=== PATIENT | female | born 1945 | race Caucasian/White ===

== ENCOUNTER 2021-03-14 12:57 | Inpatient (IN) | payer OTHER, MEDICAID, SELFPAY ==
[~2021-03-14] VITALS: Ht 157.5 cm; Wt 96.2 kg
[2021-03-14 13:00] VITALS: BP_SYST 148
--- NOTE | 2021-03-14 13:00 | NUR ---
Pt to bed 8 for evaluation. Report given to DAVON Eudardo who will assume care.
--- NOTE | 2021-03-14 13:12 | NUR ---
Pt. bib BLS from home with c/o weakness and N/V, pt. states had diarrhea for 2 days then began with N/V for last 3 days, pt. states throwing up large amounts of dark liquid and now has some abd. pain, pt. states abd. pain feels like muscle ache from throwing up.
[2021-03-14] MEDS ORDERED: BENA10TA73 PO (13:13)
[2021-03-14] MEDS ORDERED: DULO60CA41 PO (13:13)
[2021-03-14] MEDS ORDERED: BUPR100T13 PO (13:13)
[2021-03-14] MEDS ORDERED: HYDR25TA4 PO (13:13)
--- NOTE | 2021-03-14 13:25 | NUR ---
ER at bedside examining patient.
[2021-03-14] MEDS ORDERED: NACL 0.9% 1,000 ML IV ONE (13:30)
--- NOTE | 2021-03-14 13:41 | NUR ---
Pt. refusing IV and blood draw have explained POC in detail and answered all questions, pt. continue to refuse, notified Dr. Irizarry she is in discussing POC with pt. and explaining need of IV and blood draw
[2021-03-14] MEDS ORDERED: ONDANSETRON HCL 4 MG/2 ML VIAL IVP ONE (13:45)
--- NOTE | 2021-03-14 13:55 | NUR ---
Spoke with pts. son Bart per pt. request, she will not allow any treatment until she sees him
--- NOTE | 2021-03-14 14:34 | NUR ---
# 20 gauge angiocath placed to RAC. Use of asceptic technique. Opsite placed over site. Blood return noted. Blood for lab drawn from site. Flushed with 10 cc of normal saline. No evidence of infiltration noted. Patient tolerated well.
--- NOTE | 2021-03-14 14:35 | NUR ---
Patient transported to radiology via gurney for CT scan, accompanied by staff.
--- NOTE | 2021-03-14 14:35 | NUR ---
Blood collected and sent to lab.
--- NOTE | 2021-03-14 14:55 | NUR ---
NS bolus infusing, pt. still refuses Zofran, emesis X 1 clear dark brown 25 ml., son at bedside
[2021-03-14 15:00] LABS: BASOPHILS % (AUTO) 0.2 % (0.0-2.0); HEMATOCRIT 47.8 % (36-48); LYMPHOCYTES # (AUTO) 0.5 K/uL (1.0-5.5); LYMPHOCYTES % (AUTO) 4.6 % (20.5-51.5); MEAN CORPUSCULAR HEMOGLOBIN 31 pg (27-31); MEAN CORPUSCULAR HGB CONC 33 % (32-36); MEAN CORPUSCULAR VOLUME 93 fL (79.0-98.0); MONOCYTES # (AUTO) 0.5 K/uL (0.0-1.0); MONOCYTES % (AUTO) 4.6 % (1.7-9.3); NEUTROPHILS # (AUTO) 9.4 K/uL (1.8-7.7); NEUTROPHILS % (AUTO) 90.6 % (40.0-70.0); PLATELET COUNT (AUTO) 167 K/uL (130-430); RED BLOOD CELL COUNT(AUTO) 5.14 MIL/uL (4.2-6.2); RED CELL DISTRIBUTION WIDTH 14.2 % (9.0-15.0); WHITE BLOOD COUNT (AUTO) 10.4 K/uL (4.8-10.8)
[2021-03-14 15:03] LABS: ANION GAP 9 (5-15); CALCIUM 10.6 mg/dL (8.4-11.0); CHLORIDE 99 mmol/L (98-107); CREATININE 2.11 mg/dL (0.55-1.30); GLUCOSE 148 mg/dL (70-99); POTASSIUM 3.7 mmol/L (3.5-5.1); SODIUM SERUM 143 mmol/L (136-145); UREA NITROGEN, BLOOD 31 mg/dL (8-21)
[2021-03-14 15:09] LABS: ALANINE AMINOTRANSFERASE 16 U/L (12-78); ALBUMIN 4.1 g/dL (3.4-4.8); ASPARTATE AMINOTRANSFERASE 14 U/L (10-37); LIPASE 61 U/L (73-393); TOTAL BILIRUBIN 1.1 mg/dL (0.0-1.0)
--- NOTE | 2021-03-14 15:51 | NUR ---
pts. daughter Erika [phone] pts. daughter Renetta [phone]
--- NOTE | 2021-03-14 17:16 | NUR ---
pt. had 100ml of brown emesis, Dr. Bragg at bedside to review POC with pt., pt. refused NG tube that Dr. Bragg discussed with her to be placed
--- NOTE | 2021-03-14 18:01 | NUR ---
assisted pt to bedside commode per her request, she was unable to void
--- NOTE | 2021-03-14 18:05 | NUR ---
Dr. Bragg at bedside reviewed POC with pt. and pts. daughter
[2021-03-14] MEDS ORDERED: ALBUTEROL SULFATE 0.083% 2.5 MG/3 ML VIAL.NEB INH PRN (18:15)
[2021-03-14] MEDS ORDERED: ACETAMINOPHEN 325 MG TABLET PO PRN (18:15)
--- NOTE | 2021-03-14 18:20 | NUR ---
med. rec. done by Rachel Celis, pt. belongings and notification done
--- NOTE | 2021-03-14 19:20 | NUR ---
Pt report received. Pt AAOx3, even and non-labored respirations, VSS. No active N/V at this time. Polly, pt's daughter at bedside, provides phone number ([phone]). No needs verbalized at this time.
[2021-03-14] MEDS: ONDANSETRON HCL 4 MG/2 ML VIAL IVP PRN (19:36)
--- NOTE | 2021-03-14 19:50 | NUR ---
Pt O2 70% RA. No respiratory distress noted. MD notified. Order for ABG received, RT notified. Pt placed on O2 at 3 LPM/NC, SPO2 increases to 97%.
--- NOTE | 2021-03-14 20:00 | NUR ---
RT at bedside, MD present to reassess. Order for ABG cancelled per MD. SPO2 continues at 97% on O2 at 3 LPM/NC. NAD.
--- NOTE | 2021-03-14 20:12 | NUR ---
Dr. Bragg on phone with Dr. Cuenca to notify of pt desaturation and need for supplemental O2. No new orders received.
[2021-03-14] MEDS: NACL 0.9% 1,000 ML IV SCH (21:04)
[2021-03-14] MEDS: PANTOPRAZOLE SODIUM 40 MG/VIAL (PROTONIX) IVP SCH (21:04)
--- NOTE | 2021-03-14 21:35 | NUR ---
RECEIVED PT FROM ER ER EVENT STAFF TRANSFERRED PT. PT STABLE. LEFT AC 20G IV INTACT AND PATENT. PT INTERMITTENTLY HAVING THIN BROWN EMESIS. PT STATES, "I DON'T BELONG HERE. I WANT TO GO HOME". PT EDUCATED ON DIAGNOSIS AND PLAN OF CARE. PT VERBALIZED UNDERSTANDING. PT CONTINUES TO REFUSE NG TUBE INSERTION. SHE STATES, "NO, I DEFINITELY DON'T WANT THAT". PT EDUCATED ON IMPORTANCE OF HAVING NG TUBE INSERTED. PT CONTINUES TO REFUSE. NC ON 3L. PT TOLERATING WELL. SKIN INTACT. BED IN LOWEST AND LOCKED POSITION. SAFETY PRECAUTIONS IN PLACE. WILL CONTINUE TO MONITOR.
--- NOTE | 2021-03-14 21:35 | NUR ---
Patient will be admitted to care of Dr. Sharp. Admitted to M/S unit. Will go to room 100B. Belongings list completed. Complete and up to date summary report printed. SBAR report to be given at bedside with opportunity for questions.
--- NOTE | 2021-03-14 21:38 | NUR ---
CONSULTATION PAGED/CALLED Reason for Consultation: STOMACH OBSTRUCTION Person Who was Notified: LISBET Consulting Physician: DENISE MCCLELLAND TROUNG IS PUTTY GLAZER Rad Tech Specialty: Ordering Physician: MONTSERRAT
[2021-03-14 21:41] VITALS: BP_SYST 149
--- NOTE | 2021-03-14 21:44 | NUR ---
CALL RECEIVED FROM DR. HUBBARD. WAS PREVIOUSLY CALLED FOR A CONSULT. CURRENT SPECIAL LIBRARY LIBRARIAN DR FOR GI. PT REPORT GIVEN. STATES HE WILL SEE PATIENT IN MORNING.
[2021-03-14 21:57] VITALS: BP_SYST 150
--- NOTE | 2021-03-14 22:58 | NUR ---
OUTPUT PT HAS APPROXIMATELY 50ML OF THIN BROWN EMESIS. NEW EMESIS BAG GIVEN.
[2021-03-15 00:11] VITALS: BP_SYST 140
[2021-03-15] MEDS: NACL 0.9% 1,000 ML IV SCH ×2 (03:38→10:42)
--- NOTE | 2021-03-15 06:40 | NUR ---
CLOSING NOTE PT SITTING IN BED AWAKE WITH EYES OPEN. RIGHT AC IV INTACT. RUNNING IVF. PT IS HAVING MORNING EMESIS, BROWN IN COLOR, THIN IN CONSISTENCY. ABOUT 5ML IN VOLUME PER OUTPUT. PT DENIES PAIN OR SOB. BED IN LOWEST AND LOCKED POSITION. CALL LIGHT WITHIN REACH. BEDSIDE COMMODE IN PLACE. EDUCATION GIVEN TO PREVENT FALLS. ALL NEEDS MET. SAFETY PRECAUTIONS IN PLACE. WILL ENDORSE TO DAY RN.
[2021-03-15 06:50] LABS: BASOPHILS % (AUTO) 0.2 % (0.0-2.0); HEMATOCRIT 44.3 % (36-48); HEMOGLOBIN 14.7 g/dL (12.0-16.0); LYMPHOCYTES # (AUTO) 0.6 K/uL (1.0-5.5); LYMPHOCYTES % (AUTO) 4.2 % (20.5-51.5); MEAN CORPUSCULAR HEMOGLOBIN 31 pg (27-31); MEAN CORPUSCULAR HGB CONC 33 % (32-36); MEAN CORPUSCULAR VOLUME 93 fL (79.0-98.0); MONOCYTES # (AUTO) 1.1 K/uL (0.0-1.0); MONOCYTES % (AUTO) 8.5 % (1.7-9.3); NEUTROPHILS # (AUTO) 11.7 K/uL (1.8-7.7); NEUTROPHILS % (AUTO) 87.1 % (40.0-70.0); PLATELET COUNT (AUTO) 156 K/uL (130-430); RED BLOOD CELL COUNT(AUTO) 4.75 MIL/uL (4.2-6.2); RED CELL DISTRIBUTION WIDTH 14.3 % (9.0-15.0); WHITE BLOOD COUNT (AUTO) 13.5 K/uL (4.8-10.8)
[2021-03-15 07:33] LABS: ANION GAP 11 (5-15); CALCIUM 9.4 mg/dL (8.4-11.0); CHLORIDE 101 mmol/L (98-107); CREATININE 2.16 mg/dL (0.55-1.30); GLUCOSE 138 mg/dL (70-99); POTASSIUM 3.2 mmol/L (3.5-5.1); SODIUM SERUM 145 mmol/L (136-145); UREA NITROGEN, BLOOD 37 mg/dL (8-21)
[2021-03-15 07:45] LABS: ALANINE AMINOTRANSFERASE 8 U/L (12-78); ALBUMIN 3.6 g/dL (3.4-4.8); ASPARTATE AMINOTRANSFERASE 18 U/L (10-37); TOTAL BILIRUBIN 0.9 mg/dL (0.0-1.0)
[2021-03-15] MEDS ORDERED: ACETAMINOPHEN 325 MG TABLET PO PRN (08:15)
[2021-03-15] MEDS: PANTOPRAZOLE SODIUM 40 MG/VIAL (PROTONIX) IVP SCH ×2 (10:40→20:16)
--- NOTE | 2021-03-15 10:57 | NUR ---
HIGH ALERT NOTE: Called Dr. Weber back at [phone] identified within the medical roster to verify physician authenticity.
--- NOTE | 2021-03-15 10:58 | NUR ---
Nutrition Update Steve Scale 17 noted. Pt admitted for nausea and vomiting. Diet: NPO BMI: 38.9 kg/m2 RD to follow per nutrition care standards.
[2021-03-15] MEDS: KCL 20 mEq in NS 1000 mL 1,000 ML IV SCH ×2 (11:00→23:52)
--- NOTE | 2021-03-15 11:00 | NUR ---
NEEDS PICCLINE/MIDDLINE/SEEN BY DR DSOUZA/ NEEDS NGT PATIENT WITH A POOR VENOUS ACCESS, NEW IV RE-INSERTED G24, WITH ORDERED TO PUT MIDDLINE. DAUGHTER WAS HERE AT BEDSIDE MADE AWARE THAT PATIENT NEEDS PICCLINE DUE TO POOR VENOUS ACCESS. SEEN BY DR. DSOUZA, SPOKE TO DAUGHTER AND MADE AWARE THAT PATIENT NEEDS A FOREGUT SURGEON TO REPAIR THE PATIENT'S HERNIA, PER DR DSOUZA THEY CAN ONLY DO A TEMPORARY PROCEDURE, EVENTUALLY THE PATIENT'S NEEDS ANOTHER SURGERY TO FIX THE HERNIA AND REQUIRE HIGHER LEVEL OF CARE. DAUGHTER AND SON OF PATIENT AGREED FOR PICCLINE. DR CAMARGO COVERING FOR DR WHITTINGTON CAME AND TALK TO THE FAMILY. PATIENT TO BE TRANSFER TO HIGHER LEVEL OF CARE TO REFER FOR FOREGUT SURGEON PER FAMILY;S REQUEST. SON ANATOLIY DOESN'T WANT THE PATIENT TO UNDERGO 2X SURGERY, THEY PREFER THE SURGERY TO BE DONE BY FOREGUT SURGEON. GUNJAN HARPER CREDIT CARD ASSOCIATE MADE AWARE OF THE DISCHARGE PLAN TO BE TRANSFER TO HIGHER LEVEL OF CARE. FAMILY REFUSED TO PUT NGT TO PATIENT FOR NOW BECAUSE PATIENT IS CONFUSED AND WILL PULL NGT AND WILL NEED A RESTRAINT TO KEEP THE NGT. PATIENT STILL WITH EPISODES OF ON AND OFF VOMITING WITH ZOFRAN ORDERED.
[2021-03-15] MEDS: ONDANSETRON HCL 4 MG/2 ML VIAL IVP PRN ×2 (11:15→18:32)
[2021-03-15] MEDS ORDERED: POTASSIUM CHLORIDE 40 MEQ, LIDOCAINE JECT 2% PF 100 MG 50 MG in NS 250 ML IV ONE (11:30)
[2021-03-15 11:41] VITALS: BP_SYST 150
[2021-03-15] MEDS ORDERED: LORazepam 2 MG/ML VIAL IVP PRN (11:45)
--- NOTE | 2021-03-15 13:11 | NUR ---
CONSULTATION PAGED/CALLED Reason for Consultation: [] MICHAELA Person Who was Notified: [] DR BERG Consulting Physician: [] DR BERG Radiosonde Specialist Specialty: [] MANAGER SECURITY AND SAFETY Ordering Physician: [] DR CAMARGO/DR WHITTINGTON
[2021-03-15 14:01] LABS: PROTHROMBIN TIME 10.2 SECS (9.5-12.5)
[2021-03-15 15:12] VITALS: BP_SYST 136
--- NOTE | 2021-03-15 17:00 | NUR ---
DR DSOUZA MADE AWARE THAT FAMILY REFUSED NGT FOR PATENT MADE AWARE THAT PATIENT'S FAMILY REFUSED THE NGT FOR NOW.
--- NOTE | 2021-03-15 19:30 | NUR ---
OPENING NOTE RECEIVED REPORT FROM DAY RN. PT LAYING IN BED WITH RESPIRATIONS EVEN AND UNLABORED ON 3L O2 VIA NC. NO SIGNS OF DISTRESS NOTED. PT REQUESTING "ICE CHIPS". CARA PICC INTACT. DRESSING CLEAN AND DRY. RIGHT AC IV INTACT. CALL LIGHT WITHIN REACH. SAFETY PRECAUTIONS IN PLACE. BED IN LOWEST AND LOCKED POSITION. WILL CONTINUE TO MONITOR.
[2021-03-15 20:00] VITALS: BP_SYST 150
[2021-03-15] MEDS ORDERED: KCL IV ONE (21:24)
[2021-03-15] MEDS ORDERED: NS IV ONE (21:24)
[2021-03-16] VITALS: BP_SYST 134
--- NOTE | 2021-03-16 00:26 | NUR ---
CONTINUOUS EMESIS PT CONTINUES TO HAVE THIN BROWN EMESIS. SMALL AMOUNT OF SPUTUM. EMESIS BAG WITH PATIENT TO MEASURE OUTPUT.
--- NOTE | 2021-03-16 03:52 | NUR ---
ROUNDS PT STATES SHE IS THIRSTY AND WOULD LIKE TO LEAVE. PT TRIED TO GET OUT OF BED WITH IV LINE ATTACHED TO PUMP. BED ALARM SOUNDED. EDUCATED PT ON PLAN OF CARE AND DR ORDERS OF "NPO". PT STATES HER LIPS ARE DRY. LUBRICANT GIVEN TO PT. PT REFUSED AND STATES, "NO I WANT SOMETHING TO DRINK". PT BACK INTO BED, RESTING. SMALL AMOUNT OF ICE CHIPS GIVEN TO PT TO SOOTH "THIRST". PT EDUCATED ON NOT DRINKING OR SWALLOWING THE ICE. PT VERBALIZED UNDERSTANDING.
[2021-03-16 04:00] VITALS: BP_SYST 120
--- NOTE | 2021-03-16 04:11 | NUR ---
VS TAKEN D/T CONSISTENT EMESIS THROUGHOUT THE NIGHT, VS TAKEN AND WNL. BP 120/81. HR 80. R-20 T-97.0 O2-95%
[2021-03-16] MEDS: KCL 20 mEq in NS 1000 mL 1,000 ML IV SCH ×2 (05:37→17:46)
[2021-03-16 07:00] LABS: BASOPHILS % (AUTO) 0.2 % (0.0-2.0); HEMATOCRIT 44.4 % (36-48); HEMOGLOBIN 14.5 g/dL (12.0-16.0); LYMPHOCYTES # (AUTO) 0.6 K/uL (1.0-5.5); LYMPHOCYTES % (AUTO) 5.6 % (20.5-51.5); MEAN CORPUSCULAR HEMOGLOBIN 31 pg (27-31); MEAN CORPUSCULAR HGB CONC 33 % (32-36); MEAN CORPUSCULAR VOLUME 94 fL (79.0-98.0); MONOCYTES % (AUTO) 8.8 % (1.7-9.3); NEUTROPHILS # (AUTO) 9.2 K/uL (1.8-7.7); NEUTROPHILS % (AUTO) 85.4 % (40.0-70.0); PLATELET COUNT (AUTO) 133 K/uL (130-430); RED BLOOD CELL COUNT(AUTO) 4.71 MIL/uL (4.2-6.2); RED CELL DISTRIBUTION WIDTH 14.2 % (9.0-15.0); WHITE BLOOD COUNT (AUTO) 10.8 K/uL (4.8-10.8)
[2021-03-16 07:50] LABS: ANION GAP 5 (5-15); CALCIUM 8.8 mg/dL (8.4-11.0); CHLORIDE 107 mmol/L (98-107); CREATININE 2.14 mg/dL (0.55-1.30); GLUCOSE 103 mg/dL (70-99); PHOSPHORUS 4.5 mg/dL (2.7-4.5); POTASSIUM 3.8 mmol/L (3.5-5.1); SODIUM SERUM 143 mmol/L (136-145); UREA NITROGEN, BLOOD 43 mg/dL (8-21)
[2021-03-16 08:00] VITALS: BP_SYST 122
--- NOTE | 2021-03-16 08:00 | NUR ---
initial notes Awake, vomited 50ml, cleaned and repositioned for comfort, wants to go home and still refuses NGT placement, keep npo, IVF infusing well. call light within reach. will monitor.
[2021-03-16] MEDS: PANTOPRAZOLE SODIUM 40 MG/VIAL (PROTONIX) IVP SCH ×2 (08:55→20:21)
--- NOTE | 2021-03-16 11:14 | NUR ---
RE: THE TRANSFER TO A HIGHER LEVEL OF CARE SPOKE TO [employer]/CM GUNJAN LEOVAL, WHO IS WORKING ON THE TRANSFER SAID THAT DR TEODORO DSOUZA MUST SPEAK TO THE THORACIC MD, DR ANGELO OF [facility], BEFORE A TRANSFER CAN HAPPEN. I WAS ASKED BY CM MS HOLLINS TO CALL HER ONCE DR DSOUZA DOES HIS ROUND TODAY SO SHE CAN TALK TO MD.
[2021-03-16 11:23] VITALS: BP_SYST 148
--- NOTE | 2021-03-16 11:30 | NUR ---
Notes Patient resting, seen by Dr. Weber and spoke to family at bedside.
[2021-03-16 15:29] VITALS: BP_SYST 139
--- NOTE | 2021-03-16 16:21 | NUR ---
ORDERED BY [employer]/CM MS GUNJAN HARPER TO FAX ALL INFO TO [facility], TRANSFER UNIT.
--- NOTE | 2021-03-16 18:24 | NUR ---
closing notes Awake, family at bedside, still vomiting through out shift, denies any pain, no distress. will endorse.
--- NOTE | 2021-03-16 19:21 | NUR ---
opening note received report from day rn. pt sitting in bed with respirations even and unlabored on 3L o2 via NC. no signs of distress noted. pt requesting ice chips. Pt educated on plan of care for the night. IVF running. no signs of infiltration noted. bed in lowest and locked position. call light within reach. safety precautions in place. will continue to monitor.
[2021-03-16 20:31] VITALS: BP_SYST 151
[2021-03-17 00:26] VITALS: BP_SYST 139
--- NOTE | 2021-03-17 03:11 | NUR ---
ROUNDS PATIENT LAYING IN BED WITH EYES CLOSED. RESPIRATIONS EVEN AND UNLABORED ON 3L O2 VIA NC. NO SIGNS OF DISTRESS NOTED. BED IN LOWEST AND LOCKED POSITION. CALL LIGHT WITHIN REACH. SAFETY PRECAUTIONS IN PLACE. WILL CONTINUE TO MONITOR.
[2021-03-17] MEDS: KCL 20 mEq in NS 1000 mL 1,000 ML IV SCH ×2 (03:13→15:46)
--- NOTE | 2021-03-17 06:40 | NUR ---
CLOSING NOTE PATIENT LAYING AWAKE IN BED WITH RESPIRATIONS EVEN AND UNLABORED ON 3L O2 VIA NC. NO SIGNS OF DISTRESS NOTED. SAFETY PRECAUTIONS IN PLACE. CARA PICC INTACT RUNNING IVF. ALL NEEDS MET THROUGHOUT THE NIGHT. WILL ENDORSE TO DAY RN.
--- NOTE | 2021-03-17 07:35 | NUR ---
MORNING ROUNDS: PATIENT LYING ON THE BED,AWAKE,ALERT AND ORIENTED X3.O2 3L/NC,GOOD SATURATION.IV FLUIDS RUNNING AT RIGHT UPPER ARM PICC LINE,CLEAN AND DRY. CALL LIGHT WITH IN REACH. BED LOCKED AT LOWEST POSITION. CONTINUE TO MONITOR.
[2021-03-17 07:53] LABS: ALANINE AMINOTRANSFERASE 11 U/L (12-78); ANION GAP 9 (5-15); ASPARTATE AMINOTRANSFERASE 13 U/L (10-37); CALCIUM 9.6 mg/dL (8.4-11.0); CHLORIDE 112 mmol/L (98-107); CREATININE 1.78 mg/dL (0.55-1.30); GLUCOSE 93 mg/dL (70-99); POTASSIUM 4.4 mmol/L (3.5-5.1); SODIUM SERUM 150 mmol/L (136-145); TOTAL BILIRUBIN 0.7 mg/dL (0.0-1.0); UREA NITROGEN, BLOOD 48 mg/dL (8-21)
[2021-03-17 08:20] VITALS: BP_SYST 160
[2021-03-17] MEDS: PANTOPRAZOLE SODIUM 40 MG/VIAL (PROTONIX) IVP SCH ×2 (09:38→22:22)
[2021-03-17 11:25] VITALS: BP_SYST 156
[2021-03-17 11:56] LABS: BASOPHILS % (AUTO) 0.2 % (0.0-2.0); EOSINOPHILS % (AUTO) 0.2 % (0.0-4.0); HEMATOCRIT 45.5 % (36-48); HEMOGLOBIN 14.6 g/dL (12.0-16.0); LYMPHOCYTES # (AUTO) 0.6 K/uL (1.0-5.5); LYMPHOCYTES % (AUTO) 7.7 % (20.5-51.5); MEAN CORPUSCULAR HEMOGLOBIN 31 pg (27-31); MEAN CORPUSCULAR HGB CONC 32 % (32-36); MEAN CORPUSCULAR VOLUME 96 fL (79.0-98.0); MONOCYTES # (AUTO) 0.7 K/uL (0.0-1.0); NEUTROPHILS # (AUTO) 5.9 K/uL (1.8-7.7); NEUTROPHILS % (AUTO) 81.9 % (40.0-70.0); PLATELET COUNT (AUTO) 121 K/uL (130-430); RED BLOOD CELL COUNT(AUTO) 4.76 MIL/uL (4.2-6.2); RED CELL DISTRIBUTION WIDTH 14.6 % (9.0-15.0); WHITE BLOOD COUNT (AUTO) 7.2 K/uL (4.8-10.8)
[2021-03-17 12:40] LABS: ERYTHROCYTE SEDIMENTATION RATE 13 MM/HR (0-20)
[2021-03-17 12:58] LABS: C-REACTIVE PROTEIN QUANT 13.5 mg/dL (0-0.5)
[2021-03-17] MEDS ORDERED: SINCALIDE 5 MCG VIAL IV ONE (14:00)
[2021-03-17 15:31] VITALS: BP_SYST 143
--- NOTE | 2021-03-17 17:47 | NUR ---
Radiology : Spoke with Sergo from radiology to repeat Upper gi tomorrow morning per radiologist.Keep patient nothing by mouth after 12 midnight.
--- NOTE | 2021-03-17 18:24 | NUR ---
NEW ORDER: CHANGED IV FLUIDS TO D5 WATER AT 75CC/H PER NEPHRO.
--- NOTE | 2021-03-17 18:25 | NUR ---
EVENING ROUNDS: PATIENT RESTING. CALL LIGHT WITH IN REACH. BED LOCKED AT LOWEST POSITION. BED ALARM ON. CONTINUE TO MONITOR.
[2021-03-17] MEDS: D5W 1,000 ML IV SCH (18:55)
[2021-03-17 20:40] VITALS: BP_SYST 130
[2021-03-18] VITALS (7 sets, daily range): BP systolic 131–155
--- NOTE | 2021-03-18 01:12 | NUR ---
I RECEIVED PT IN BED ALERT ORIENTED , DENIES PAIN , VSS ,,ON IVF SITE IS INTACT SHE HAS SL ON LOWER RT HAND AND A PICCLINE RIGHT UPPER ARM INTACT AND DRESSING CLEAN , HER SKIN IS INTACT, SHE IS ON O2 BY NC , DIMINISHED LUNG SOUNDS , SHE IS WET WE CLEANED HER AND REPOSITIONED HER , RIGHT NOW SHE IS SLEEPING .
--- NOTE | 2021-03-18 04:24 | NUR ---
PT IS CLEANED AND A BEDBATH GIVEN AND LINEN CHANGED , REPOSITIONED , SEEMS COMFORTABLE , VSS
[2021-03-18] MEDS: D5W 1,000 ML IV SCH ×2 (06:21→21:04)
--- NOTE | 2021-03-18 06:39 | NUR ---
PT SLEPT WELL VSS NO PAIN
--- NOTE | 2021-03-18 08:00 | NUR ---
OPENING NOTES: PATIENT RESTING IN BED. BREATHING EVEN AND NON LABORED TO 3L/NC. IV INFUSING WELL. BED LOCKED, ALARM ON AND IN LOWEST POSITION. FALL, SAFETY AND ASPIRATION PRECAUTION REINFORCED. CALL LIGHT WITHIN REACH.
[2021-03-18] MEDS: PANTOPRAZOLE SODIUM 40 MG/VIAL (PROTONIX) IVP SCH ×2 (10:00→21:04)
[2021-03-18 10:30] LABS: ANION GAP 7 (5-15); CALCIUM 10.1 mg/dL (8.4-11.0); CHLORIDE 111 mmol/L (98-107); CREATININE 1.86 mg/dL (0.55-1.30); GLUCOSE 139 mg/dL (70-99); POTASSIUM 3.9 mmol/L (3.5-5.1); SODIUM SERUM 149 mmol/L (136-145); UREA NITROGEN, BLOOD 48 mg/dL (8-21)
--- NOTE | 2021-03-18 18:58 | NUR ---
CLOSING NOTES: PATIENT RESTING IN BED. NO SIGNS OF ACUTE DISTRESS NOTED. IV PATENT AND INFUSING WELL. BED LOCKED, ALARM ON AND IN LOWEST POSITION. FALL AND SAFETY PROVIDED. CALL LIGHT WITHIN REACH
--- NOTE | 2021-03-18 19:30 | NUR ---
OPENING NOTE PT SITTING IN BED WITH RESPIRATIONS EVEN AND UNLABORED ON 2L O2 VIA NC. NO ACTIVE EMESIS NOTED. PT IS REQUESTING ICE CHIPS. RIGHT UPPER ARM PICC INTACT RUNNING IVF. DRESSING CLEAN AND DRY. NO SIGNS OF INFILTRATION NOTED. BED IN LOWEST AND LOCKED POSITION. CALL LIGHT WITHIN REACH. SAFETY PRECAUTIONS IN PLACE. WILL CONTINUE TO MONITOR.
--- NOTE | 2021-03-18 21:16 | NUR ---
PT VOMITING BROWN, THIN, LIQUID EMESIS. PT DENIES PAIN AT THIS TIME. WILL CONTINUE TO MONITOR.
[2021-03-19 00:16] VITALS: BP_SYST 152
--- NOTE | 2021-03-19 07:28 | NUR ---
CLOSING NOTE PT IN BED WITH RESPIRATIONS EVEN AND UNLABORED. NO SIGNS OF DISTRESS NOTED. ALL NEEDS MET. SAFETY PRECAUTIONS IN PLACE. CALL LIGHT WITHIN REACH. WILL ENDORSE TO DAY RN.
--- NOTE | 2021-03-19 07:45 | NUR ---
OPENING NOTE Received report from night nurse. Patient is alert and oriented x3. On 2 L nasal cannula and tolerating well with no signs of shortness of breath noted. PICC line in right arm is infusing fluids as ordered. Bed locked and in lowest position. Call light within reach. Bed alarm on. Will continue to monitor.
[2021-03-19 08:00] VITALS: BP_SYST 142
[2021-03-19] MEDS: PANTOPRAZOLE SODIUM 40 MG/VIAL (PROTONIX) IVP SCH ×2 (08:27→20:47)
[2021-03-19] MEDS: D5W 1,000 ML IV SCH ×2 (08:33→22:27)
--- NOTE | 2021-03-19 10:48 | NUR ---
RN NOTE Patient is resting in bed. C/o nausea and vomiting. Dark brown emesis noted. Family at bedside, updated on plan of care and transfer plan. Spoke with showcase maker regarding transfer plan, difficulty with fax machine at [facility] so unable to receive all records. COVID rapid test sent to lab. Dr. Sharp to see patient, clarified orders for NPO. Will continue to monitor.
[2021-03-19 11:22] VITALS: BP_SYST 136
[2021-03-19 16:16] VITALS: BP_SYST 140
--- NOTE | 2021-03-19 17:10 | NUR ---
RD Recommendation: *Recommend GI consult for PN vs EN initiation to prevent malnutrition. please refer to nutrition assessment for details. CN,RD
--- NOTE | 2021-03-19 18:28 | NUR ---
CLOSING NOTE Patient is resting in bed. On 2 L nasal cannula and tolerating well with no signs of shortness of breath noted. IV is patent, infusing fluids as ordered. Bed locked and in lowest position. Call light within reach. Bed alarm on. Patient remains NPO per MD order. All needs met throughout shift. Will endorse to night nurse.
--- NOTE | 2021-03-19 19:15 | NUR ---
OPENING NOTES PATIENT RESTING, NO SIGNS OF DISTRESS NOTED. CALL LIGHT WITHIN REACH, PATIENT DEMONSTRATES PROPER USAGE OF CALL LIGHT, BED ALARM ON, BED AT LOWEST POSITION, BED LOCKED. FALL, RESPIRATORY, ASPIRATION AND SAFETY PRECAUTIONS IN PLACE. WILL CONTINUE TO MONITOR.
[2021-03-19 20:00] VITALS: BP_SYST 117
--- NOTE | 2021-03-19 21:30 | NUR ---
OPENING NOTE RECEIVED REPORT FROM RN. PATIENT LAYING IN BED WITH EYES CLOSED. RESPIRATIONS EVEN AND UNLABORED ON O2 VIA NC. NO SIGNS OF DISTRESS NOTED. CARA PICC INTACT. DRESSING CLEAN AND DRY. FLUSHES WELL. RIGHT FA IV INTACT RUNNING IVF. NO SIGNS OF INFILTRATION NOTED. CALL LIGHT WITHIN REACH. WILL CONTINUE TO MONITOR.
--- NOTE | 2021-03-19 21:32 | NUR ---
SBAR PROVIDED TO DAVON HERBERT. PATIENT RESTING, NO DISTRESS NOTED.
[2021-03-20 00:11] VITALS: BP_SYST 160
--- NOTE | 2021-03-20 02:49 | NUR ---
PT STATES SHE FEELS LIKE SHE HAS TO HAVE A BOWEL MOVEMENT. PT PLACED ON BEDPAN. NO BM NOTED AND PT STATES "I FORGOT I WAS ON IT". NO CURRENT C/O PAIN OR SOB.
--- NOTE | 2021-03-20 06:59 | NUR ---
CLOSING NOTE PATIENT LAYING IN BED. RESPIRATIONS EVEN AND UNLABORED. NO SIGNS OF DISTRESS NOTED. ALL NEEDS MET. SAFETY PRECAUTIONS IN PLACE. CALL LIGHT WITHIN REACH. PT STABLE. WILL ENDORSE TO DAY RN.
[2021-03-20 07:46] VITALS: BP_SYST 120
[2021-03-20] MEDS: PANTOPRAZOLE SODIUM 40 MG/VIAL (PROTONIX) IVP SCH ×2 (08:02→20:46)
[2021-03-20] MEDS: D5W 1,000 ML IV SCH ×2 (08:03→20:47)
[2021-03-20 11:28] VITALS: BP_SYST 129
--- NOTE | 2021-03-20 13:25 | NUR ---
Dr. Cantu to see patient MD to see patient. Patient has no c/o nausea at this time. Will continue to monitor.
--- NOTE | 2021-03-20 14:41 | NUR ---
ATTENDING MD DR WHITTINGTON WAS CALLED, RE: TPN ORDER. SPOKE TO CYN.
--- NOTE | 2021-03-20 14:43 | NUR ---
Family concerned about patient's nutrition Called Dr. Sharp. Received orders for TPN per pharmacy. Noted and will carry out.
[2021-03-20] MEDS ORDERED: DEXTROSE 50% JECT 50 ML DISP.SYRIN IVP PRN (14:45)
[2021-03-20 15:28] VITALS: BP_SYST 132
[2021-03-20 20:00] VITALS: BP_SYST 125
--- NOTE | 2021-03-20 20:05 | NUR ---
Opening notes Pt AAOx3, no s/s distress noted. VSS, afebrile. O2 sat 96% on 2L NC. Pt NPO, noted small bile emesis at bedside. Pt incontinent of urine. Pericare/skin care provided. IVF infusing at ordered rate CARA PICC line, good blood return. Call ligth within reach. To monitor.
--- NOTE | 2021-03-20 20:25 | NUR ---
Received call from [facility] Received call from Melody at [facility] and states they are working on a Med surg bed for the pt.
--- NOTE | 2021-03-21 01:05 | NUR ---
Rounds Pt awake, resting comfortably. No s/s distress noted. IVF infusing at ordered rate CARA PICC line. Call light within reach. Safety maintained. To monitor.
[2021-03-21 01:46] VITALS: BP_SYST 130
--- NOTE | 2021-03-21 05:46 | NUR ---
Closing notes Pt asleep, easily awakens. IVF infusing at ordered rate CARA PICC dressing C/D/I. Pt incontinent of urine, pericare provided. Safety maintained. CAll light within reach. To endorse to AM nurse.
--- NOTE | 2021-03-21 08:03 | NUR ---
OPENING NOTES ASLEEP. NO SIGN OF DISTRESS. IV FLUID INFUSING WELL. SAFETY CHECKS DONE. CALL LIGHT WITHIN REACH. WILL MONITOR.
[2021-03-21 08:04] VITALS: BP_SYST 116
[2021-03-21 08:14] LABS: ALANINE AMINOTRANSFERASE 54 U/L (12-78); ALBUMIN 2.4 g/dL (3.4-4.8); ANION GAP 5 (5-15); ASPARTATE AMINOTRANSFERASE 33 U/L (10-37); CALCIUM 9.3 mg/dL (8.4-11.0); CHLORIDE 101 mmol/L (98-107); CREATININE 1.92 mg/dL (0.55-1.30); GLUCOSE 130 mg/dL (70-99); PHOSPHORUS 3.2 mg/dL (2.7-4.5); POTASSIUM 3.6 mmol/L (3.5-5.1); SODIUM SERUM 136 mmol/L (136-145); TOTAL BILIRUBIN 1.5 mg/dL (0.0-1.0); UREA NITROGEN, BLOOD 50 mg/dL (8-21)
[2021-03-21] MEDS: PANTOPRAZOLE SODIUM 40 MG/VIAL (PROTONIX) IVP SCH ×2 (09:35→22:19)
[2021-03-21] MEDS: D5W 1,000 ML IV SCH (09:35)
[2021-03-21 09:48] LABS: TRIGLYCERIDES 79 mg/dL (30-150)
--- NOTE | 2021-03-21 09:50 | NUR ---
MED PASS; MD ROUNDS MEDICATIONS ADMINISTERED. PATIENT COMPLAINED OF A 'LITTLE' PAIN IN THE ABDOMEN BUT REFUSED TO TAKE ANY MEDICATIONS. DR. WHITTINGTON SAW PATIENT AT BEDSIDE. AWARE THAT PATIENT IS IN PAIN AND THAT WE ARE STILL WAITING FOR A BED FROM [facility]
[2021-03-21 11:28] VITALS: BP_SYST 102
[2021-03-21 12:11] VITALS: BP_SYST 116
--- NOTE | 2021-03-21 15:37 | NUR ---
Nutrition F/U RD reviewed pt's current EMR record including diet Hx, physician notes, nursing notes, pertinent labs/meds/procedures, care trends, and care activity. Admission Dx: Nausea & vomiting PMH: Hypertension and psychiatric disorder. SARS-CoV-2 (Rapid) 03/14 Negative , pending 03/19 Pt also admitted . Intractable nausea, vomiting, Diarrhea,Psychiatric disorder, Acute kidney injury, Hiatal hernia. Per MD notes and EMR review 03/21: pt has a paraesophageal hernia and ARF; nausea persists; awaiting bed from [facility] Current Diet Order/Nutrition Support: NPO x4 days Subjective Info: TPN per pharmacy notification received 03/20/[address] spoke w/ pharmD and relayed RD rec for TPN support -- plans to start TPN later today. Per EMR review, no PO intakes noted d/t NPO status; no BM noted since admission; pt is confused/disoriented; abd is soft and non-distended w/ active bowel sounds; pt is on 2 L O2 via NC. RD called pt's primary RN at [phone], busy line. RD bedside visit deferred d/t high RD load. Pertinent Medications: D5%-W at 75 ml/hr (306 kcal/day), protonix IV, zofran Pertinent Labs: Na 136 WNL, Cl 101 WNL, BUN 50 H, CRE 1.92 H, BG 130 H, POC BG 134 H Height (Feet) 5 feet Height (Inches) 2.00 inches Weight (Pounds) 212 pounds -- stable since 03/19 Weight (Calculated Kilograms) 96.580170 kilograms Patient Weight 96.162 kg Body Mass Index 38.77 kg/m2 [place]/Adjusted Body Weight IBW: 110#/50kg; Adj IBW: 136#/62kg Recent Weight Change No Weight Status Obese Gastrointestinal Symptoms Nausea Vomiting Usual Diet At Home regular Estimated Energy Expenditure (kcals/day) 25-30kcal/kg/d Adj IBW for maintenance = 1550-1860kcal Estimated Protein Required (g/day) 0.8-1.0g/kg/d Adj IBW for maintenance = 50-64g Estimated Fluid Required (l/day) 1ml/kcal = 2451-5237 ml Problem/Etiology/Signs/Symptoms Altered GI function R/T compromised function a/w GI organs such as gallbladder AEB cholelithiasis and consistent nausea/vomiting. *ongoing Expected Outcomes/Goals Monitor GI status and intake w/ goal of pt meeting more than 75% of estimated nutritional needs, labs trending WNL, normal GI function, skin integrity/wt maintenance. Dietitian Recommendations * Recommend TPN D30%, AA8.5% at 65 ml/hr (goal rate), IL20% at 10 ml/hr via central line Provides: 1541 kcal/day, 66 gm protein/day, 1560 ml total volume/day, and GIR: 1.7 gm CHO/kg/min Meets: 99% of lower end of estimated caloric needs and 103% of upper end of estimated protein needs * Consider D/C D5%-W at 75 ml/hr (306 kcal/day) once pt is receiving TPN support Follow Up High Risk: F/U in 2-3 days Addendum: 03/21/21 at [address] SARS-CoV-2 (Rapid) Negative 03/14 & 03/19
--- NOTE | 2021-03-21 15:44 | NUR ---
Dietitian Recommendations * Recommend TPN D30%, AA8.5% at 65 ml/hr (goal rate), IL20% at 10 ml/hr via central line Provides: 1541 kcal/day, 66 gm protein/day, 1560 ml total volume/day, and GIR: 1.7 gm CHO/kg/min Meets: 99% of lower end of estimated caloric needs and 103% of upper end of estimated protein needs * Consider D/C D5%-W at 75 ml/hr (306 kcal/day) once pt is receiving TPN support LP, RD Please refer to Nutrition F/U for details.
[2021-03-21 16:00] VITALS: BP_SYST 106
--- NOTE | 2021-03-21 19:10 | NUR ---
Patient in bed, HOB up for aspiration precaution. Patient still c/o nausea / vomiting. Not in any distress. Call light within reach. PICC line patent with D5@ running at 75 mL/hr.
[2021-03-21 20:00] VITALS: BP_SYST 110
[2021-03-21] MEDS ORDERED: POTASSIUM CHLORIDE IV SCH ×7 (21:00)
[2021-03-21] MEDS ORDERED: NA PHOS IV SCH ×7 (21:00)
[2021-03-21] MEDS ORDERED: [UNRECOGNIZED DRUG - OTHER] IV SCH ×7 (21:00)
[2021-03-21] MEDS ORDERED: SODIUM ACETATE IV SCH ×7 (21:00)
[2021-03-21] MEDS ORDERED: *TPN PER PHARMACY XX PRN (21:00)
[2021-03-21] MEDS ORDERED: TPN CENTRAL IV SCH ×7 (21:00)
[2021-03-21] MEDS: FAT EMULSIONS 250 ML IV SCH (22:17)
[2021-03-22 00:42] VITALS: BP_SYST 124
[2021-03-22] MEDS: INSULIN REGULAR, HUMAN 100 UNITS/ML, 10 ML VIAL (humuLIN R) SUBCUT PRN ×4 (01:24→23:07)
[2021-03-22] MEDS: MORPHINE 2 MG/ML INJ. SYRINGE IVP PRN (01:25)
[2021-03-22 04:00] VITALS: BP_SYST 104
[2021-03-22] MEDS: D5W 1,000 ML IV SCH ×2 (04:15→18:49)
[2021-03-22 08:00] VITALS: BP_SYST 120
[2021-03-22 10:37] LABS: ALANINE AMINOTRANSFERASE 56 U/L (12-78); ALBUMIN 2.3 g/dL (3.4-4.8); ANION GAP 9 (5-15); ASPARTATE AMINOTRANSFERASE 32 U/L (10-37); CALCIUM 8.9 mg/dL (8.4-11.0); CHLORIDE 99 mmol/L (98-107); CREATININE 2.08 mg/dL (0.55-1.30); GLUCOSE 146 mg/dL (70-99); PHOSPHORUS 3.3 mg/dL (2.7-4.5); POTASSIUM 3.6 mmol/L (3.5-5.1); SODIUM SERUM 134 mmol/L (136-145); TOTAL BILIRUBIN 1.1 mg/dL (0.0-1.0); UREA NITROGEN, BLOOD 55 mg/dL (8-21)
[2021-03-22] MEDS: PANTOPRAZOLE SODIUM 40 MG/VIAL (PROTONIX) IVP SCH ×2 (11:04→21:52)
[2021-03-22 12:48] VITALS: BP_SYST 101
[2021-03-22] MEDS: ONDANSETRON HCL 4 MG/2 ML VIAL IVP PRN ×2 (12:54→23:00)
[2021-03-22 18:02] VITALS: BP_SYST 108
--- NOTE | 2021-03-22 19:05 | NUR ---
OPENING NOTES PATIENT RESTING, NO SIGNS OF DISTRESS NOTED. HOB ELEVATED, CALL LIGHT WITHIN REACH, PATIENT DEMONSTRATES PROPER USAGE OF CALL LIGHT, BED ALARM ON, BED AT LOWEST POSITION, BED LOCKED. FALL, RESPIRATORY, ASPIRATION AND SAFETY PRECAUTIONS IN PLACE. WILL CONTINUE TO MONITOR. Addendum: 03/23/21 at 0525 by Esther Ramos RN RECEIVED REPORT THAT PATIENT IS HELD BASED ON THE CASE MANAGEMENT OF [phone] [facility] [employer], WHO COULD NOT BE CONTACTED WHEN AM SHIFT CALLED THEY WERE CLOSED. WAS ENDORSED THAT THE CASE MANAGEMENT MAY BE CLOSED FOR THE WEEKEND.
[2021-03-22 20:00] VITALS: BP_SYST 125
[2021-03-22] MEDS ORDERED: POTASSIUM CHLORIDE IV SCH ×8 (21:00)
[2021-03-22] MEDS ORDERED: NA PHOS IV SCH ×8 (21:00)
[2021-03-22] MEDS ORDERED: TPN CENTRAL IV SCH ×8 (21:00)
[2021-03-22] MEDS ORDERED: SODIUM ACETATE IV SCH ×8 (21:00)
[2021-03-22] MEDS ORDERED: [UNRECOGNIZED DRUG - OTHER] IV SCH ×8 (21:00)
[2021-03-22] MEDS: FAT EMULSIONS 250 ML IV SCH (21:54)
--- NOTE | 2021-03-23 00:13 | NUR ---
PATIENT COMPLAINING OF PAIN IN THE STOMACH, REPOSITIONED AND OFFERED PAIN MEDICATION PRN. PATIENT REFUSES PAIN MEDICATION AT THIS TIME, EDUCATION PROVIDED. WILL CONTINUE TO MONITOR.
[2021-03-23 00:19] VITALS: BP_SYST 127
[2021-03-23] MEDS: MORPHINE 2 MG/ML INJ. SYRINGE IVP PRN (00:43)
[2021-03-23] MEDS: ONDANSETRON HCL 4 MG/2 ML VIAL IVP PRN (04:08)
[2021-03-23] MEDS: INSULIN REGULAR, HUMAN 100 UNITS/ML, 10 ML VIAL (humuLIN R) SUBCUT PRN ×2 (06:22→17:09)
--- NOTE | 2021-03-23 07:03 | NUR ---
CLOSING NOTES PATIENT RESTING, NO SIGNS OF DISTRESS NOTED. HOB ELEVATED, CALL LIGHT WITHIN REACH, BED ALARM ON, BED AT LOWEST POSITION, BED LOCKED. FALL, RESPIRATORY, ASPIRATION AND SAFETY PRECAUTIONS IN PLACE THROUGHOUT SHIFT. ALL NEEDS MET THROUGHOUT SHIFT. WILL ENDORSE CARE TO ONCOMING SHIFT.
[2021-03-23 09:00] VITALS: BP_SYST 122
--- NOTE | 2021-03-23 09:45 | NUR ---
ASSUMPTION OF CARE: RECEIVED PT A/A/OX3. NO SIGN OF DISTRESS. IV FLUID INFUSING WELL. SAFETY CHECKS DONE. CALL LIGHT WITHIN REACH. WILL MONITOR.
[2021-03-23 09:46] LABS: ANION GAP 11 (5-15); CALCIUM 9.4 mg/dL (8.4-11.0); CHLORIDE 93 mmol/L (98-107); CREATININE 1.86 mg/dL (0.55-1.30); GLUCOSE 163 mg/dL (70-99); PHOSPHORUS 3.2 mg/dL (2.7-4.5); POTASSIUM 3.4 mmol/L (3.5-5.1); SODIUM SERUM 130 mmol/L (136-145); UREA NITROGEN, BLOOD 58 mg/dL (8-21)
[2021-03-23 10:11] LABS: BASOPHILS % (AUTO) 0.2 % (0.0-2.0); EOSINOPHILS # (AUTO) 0.1 K/uL (0.0-0.4); EOSINOPHILS % (AUTO) 0.7 % (0.0-4.0); HEMATOCRIT 43.4 % (36-48); HEMOGLOBIN 14.2 g/dL (12.0-16.0); LYMPHOCYTES # (AUTO) 0.5 K/uL (1.0-5.5); LYMPHOCYTES % (AUTO) 5.1 % (20.5-51.5); MEAN CORPUSCULAR HEMOGLOBIN 31 pg (27-31); MEAN CORPUSCULAR HGB CONC 33 % (32-36); MEAN CORPUSCULAR VOLUME 93 fL (79.0-98.0); MONOCYTES # (AUTO) 1.1 K/uL (0.0-1.0); MONOCYTES % (AUTO) 11.1 % (1.7-9.3); NEUTROPHILS # (AUTO) 8.3 K/uL (1.8-7.7); NEUTROPHILS % (AUTO) 82.9 % (40.0-70.0); PLATELET COUNT (AUTO) 120 K/uL (130-430); RED BLOOD CELL COUNT(AUTO) 4.66 MIL/uL (4.2-6.2); RED CELL DISTRIBUTION WIDTH 14.1 % (9.0-15.0)
[2021-03-23] MEDS: PANTOPRAZOLE SODIUM 40 MG/VIAL (PROTONIX) IVP SCH ×2 (12:48→21:59)
--- NOTE | 2021-03-23 18:55 | NUR ---
INCOMING CALL FROM [employer], DIGNA Mason informed that transportation has been arranged with [facility], with ETA at midnight report will be called to [phone] patient will go to [facility] rm [id number]
--- NOTE | 2021-03-23 19:15 | NUR ---
OPENING NOTE REPORT RECEIVED FROM DAYSHIFT NURSE. PATIENT RECEIVED LYING IN BED, AWAKE, NO S/S OF ACUTE DISTRESS. PATIENT DENIES PAIN. PATIENT DENIES NAUSEA. BREATHING EVEN AND UNLABORED. HOB RAISED, NASAL CANULA ATTACHED PROPERLY, ON 2L OF OXYGEN. IVF INFUSING WELL, IV SITE PATENT, NO SIGNS OF INFILTRATION OR INFECTION NOTED. SKIN WARM AND DRY TO TOUCH, NO S/S OF HYPOGLYCEMIA NOTED. CALL LIGHT WITH PATIENT. BED ALARM ON. BED IS LOCKED AND AT LOWEST POSITION. WILL CONTINUE TO MONITOR.
[2021-03-23 20:00] VITALS: BP_SYST 110
[2021-03-23] MEDS ORDERED: SODIUM ACETATE IV SCH ×10 (21:00)
[2021-03-23] MEDS ORDERED: POTASSIUM CHLORIDE IV SCH ×10 (21:00)
[2021-03-23] MEDS ORDERED: TPN CENTRAL IV SCH ×10 (21:00)
[2021-03-23] MEDS ORDERED: NA PHOS IV SCH ×10 (21:00)
[2021-03-23] MEDS ORDERED: [UNRECOGNIZED DRUG - OTHER] IV SCH ×10 (21:00)
[2021-03-23] MEDS: D5W 1,000 ML IV SCH (21:59)
[2021-03-23] MEDS: FAT EMULSIONS 250 ML IV SCH (22:00)
--- NOTE | 2021-03-23 22:48 | NUR ---
REPORT TO [facility] REPORT GIVEN TO DAVON SIBLEY AT THIS TIME.
[2021-03-23 22:50] VITALS: BP_SYST 110
--- NOTE | 2021-03-23 23:32 | NUR ---
DISCHARGE BEDSIDE REPORT GIVEN TO NORMAN, EMT, WITH [facility]. PATIENT IN BED, AOX4, BUT LETHARGIC. NO S/S OF ACUTE DISTRESS, DENIES PAIN OR NAUSEA. BREATHING EVEN AND UNLABORED. HOB RAISED. ON 2L OF OXYGEN. PICC LINE ATTACHED, CLEAN AND DRY. SKIN WARM AND DRY TO TOUCH, NO S/S OF HYPOGLYCEMIA NOTED. ALL NEEDS MET. PATIENT ESCORTED OUT OF UNIT VIA GURNEY. ALL PERSONAL BELONGINGS WITH PATIENT. WRIST BAND REMOVED AND DISPOSED OF PROPERLY.
== END 2021-03-23 23:45 | disposition short-term general hospital (02) | DRG 391 ==
LOC: SED 12:57 → SMU 18:07
PROVIDERS: ADMIT Internal Medicine Hospice and Palliative Medicine; ATTEND Internal Medicine Hospice and Palliative Medicine
DX: K44.9 Diaphragmatic hernia without obstruction or gangrene (principal); N17.0 Acute kidney failure with tubular necrosis; E46 Unspecified protein-calorie malnutrition; E83.41 Hypermagnesemia; Z60.2 Problems related to living alone; K80.20 Calculus of gallbladder without cholecystitis without obstruction; Z20.822 Contact with and (suspected) exposure to COVID-19; R53.81 Other malaise; R73.9 Hyperglycemia, unspecified; I12.9 Hypertensive chronic kidney disease with stage 1 through stage 4 chronic kidney disease, or unspecified chronic kidney disease; N18.9 Chronic kidney disease, unspecified; D72.829 Elevated white blood cell count, unspecified; Z88.0 Allergy status to penicillin; Z79.899 Other long term (current) drug therapy; Z90.710 Acquired absence of both cervix and uterus; Z68.38 Body mass index [BMI] 38.0-38.9, adult
CPT/HCPCS: 36415; 71045; 76376; 76700-TC; 78226; 80048; 80053; 82962; 83605; 83690; 83735; 84100; 84478; 84484; 85025; 85610-TC; 85651-TC; 85730-TC; 86140; 87040-TC; 93005; 94760; 96360; 99285; A9537; C9113; J1815; J2270; J2405; J2805; J3475; J3480; J7050; J7131